=== PATIENT | female | born 1965 | race Two or more races ===

== ENCOUNTER 2022-06-20 12:36 | Emergency (ER) | payer BC ==
[~2022-06-20] VITALS: Ht 139.7 cm; Wt 47.6 kg
[2022-06-20] MEDS ORDERED: SYNTHROID50 MCG PO (13:13)
== END 2022-06-20 22:15 | disposition home or self-care (01) ==
LOC: ER 12:36
DX: K52.89 Other specified noninfective gastroenteritis and colitis (principal); E03.9 Hypothyroidism, unspecified; Z88.2 Allergy status to sulfonamides; Z91.041 Radiographic dye allergy status; Z88.1 Allergy status to other antibiotic agents